=== PATIENT | female | born 1985 | race Caucasian/White ===

== ENCOUNTER 2021-09-13 10:02 | Outpatient (CLI) | payer OTHER, SELFPAY ==
--- NOTE | ~2021-09-13 | US_ITS ---
EXAMINATION: US OB <=14 wk fetus w TV DATE: 09/13/2021 11:05 INDICATION: Amenorrhea, unspecified. Uncertain dates. TECHNIQUE: Real-time transabdominal pelvic ultrasound was performed. COMPARISON: None. FINDINGS: The uterus measures 8.6 x 4.4 x 6.0 cm. There is an intrauterine gestational sac. A yolk sac is ident ified. The crown rump length measures 6 mm, which correlates with an estimated gestational age of 6 weeks and 2 day(s) (+/-) 4 day(s). heart motion is identified measuring 113 beats per min point lay ira (bpm) by M-mode Doppler. The right ovary measures 2.9 x 1.8 x 1.7 cm. The left ovary measures 3.8 x 2.0 x 1.6 cm. There is no free fluid in the pelvis. IMPRESSION: 1. Single live intrauterine gestation with estimated date of delivery of 05/07/2022. Reviewed, dictated and finalized at location E. D SERVICE REPRESENTATIVE IMPRESSION: 1. Single live intrauterine gestation with estimated date of delivery of 2021.
== END 2021-09-13 10:03 | disposition home or self-care (01) ==
PROVIDERS: Visit Provider Obstetrics & Gynecology
DX: N91.2 Amenorrhea, unspecified (principal)
CPT/HCPCS: 76801; 76817

== ENCOUNTER 2021-11-26 14:47 | Outpatient (CLI) | payer OTHER, SELFPAY ==
[2021-11-26 15:31] LABS: Alanine Aminotransferase 65 U/L (4-35); Albumin Level 3.9 g/dL (3.5-5.1); Alkaline Phosphatase 77 U/L (38-126); Anion Gap 7 mmol/L (8-16); Aspartate Amino Transferase 39 U/L (14-36); Bilirubin,Total 0.2 mg/dL (0.2-1.3); Blood Urea Nitrogen 6 mg/dL (7-17); Carbon Dioxide 23 mmol/L (22-30); Chloride 105 mmol/L (98-107); Estimated Glomerular Filt Rate > 60; Glucose 90 mg/dL (65-110); Lactate Dehydrogenase 316 U/L (313-618); Potassium 3.9 mmol/L (3.4-5.0); Sodium 135 mmol/L (137-145); Uric Acid 4.2 mg/dL (2.5-7.5)
--- NOTE | 2021-11-26 15:37 | ECG_ITS ---
Measurements Intervals [place] Rate: 95 P: 28 NC: 145 QRS: -22 QRSD: 92 T: 19 QT: 347 QTc: 437 Interpretive Statements SINUS RHYTHM BORDERLINE LEFT AXIS DEVIATION [QRS AXIS < -20] NO PREVIOUS ECG AVAILABLE FOR COMPARISON Electronically Signed On 11-27-2021 13:38:35 CDT by Noa Deng M.D.
== END 2021-11-26 14:48 | disposition home or self-care (01) ==
LOC: ANHLAB 14:49
PROVIDERS: Visit Provider Student in an Organized Health Care Education/Training Program
DX: O13.9 Gestational [pregnancy-induced] hypertension without significant proteinuria, unspecified trimester (principal); Z3A.00 Weeks of gestation of pregnancy not specified
CPT/HCPCS: 36415; 80053; 83615; 84443; 84550; 93005

== ENCOUNTER 2021-11-28 09:56 | Outpatient (CLI) | payer OTHER, SELFPAY ==
[2021-11-28 11:38] LABS: Creatinine Urine 87.7 mg/dL
[2021-11-28 11:54] LABS: Total Protein Urine Random 8 mg/dL
[2021-11-28 13:30] LABS: Total Protein Urine 24 Hr 96 mg/24hr (28-141); Total Volume 24 Hour Urine 1200 ml
== END 2021-11-28 09:57 | disposition home or self-care (01) ==
LOC: ANHLAB 10:00
PROVIDERS: Visit Provider Student in an Organized Health Care Education/Training Program
DX: O13.9 Gestational [pregnancy-induced] hypertension without significant proteinuria, unspecified trimester (principal); Z3A.00 Weeks of gestation of pregnancy not specified
CPT/HCPCS: 81050; 82570; 84156

== ENCOUNTER 2021-12-26 08:49 | Outpatient (CLI) | payer OTHER, SELFPAY ==
--- NOTE | 2021-12-26 09:07 | ECHO_ITS ---
Patient Info Name: Hyacinth Rodriguez Age: 36 years : 1985 Gender: Female Ht: 68 in Wt: 310 lbs BSA: 2.67 m2 HR: 94 bpm BP: 163 / 96 mmHg Technical Quality: Good Exam Date: 12/26/2021 9:26 AM Exam Location: [facility] Patient Status: Outpatient Admit Date: 12/26/2021 Staff Ordering Physician: Melany Beltran MD Health Social Work Professor: Josue Forde RDCS, RT Attending Provider: Melany Beltran MD Referring Physician: Devin CASILLAS; Exam Type: CA echo doppler color flow Study Info Indications I10 - Essential (primary) hypertension Complete two-dimensional, color flow and Doppler transthoracic echocardiogram is performed. Strain analysis performed. Summary 1. Complete two-dimensional, color flow and Doppler transthoracic echocardiogram is performed. 2. Left ventricular chamber dimension is normal. 3. Left ventricular systolic function is normal, estimated at 60-65%. 4. The left ventricular diastolic function is grade I diastolic dysfunction. 5. E/e' 4 is not elevated. 6. Global longitudinal strain is normal at -17.9%. 7. Left atrial chamber dimension is mildly enlarged. Left Ventricle E/e' 4 is not elevated. Global longitudinal strain is normal at -17.9%. Left ventricular chamber dimension is normal. Left ventricular systolic function is normal, estimated at 60-65%. The left ventricular diastolic function is grade I diastolic dysfunction. Right Ventricle Right ventricular systolic function is normal and with normal TAPSE 2.1 cm. Right ventricular chamber dimension is normal. Left Atria Left atrial chamber dimension is mildly enlarged. Right Atria Right atrial chamber dimension is normal. Aortic Valve The aortic valve is trileaflet. There is no aortic valve stenosis. There is no aortic valve regurgitation. Pulmonic Valve There is no pulmonic regurgitation. Mitral Valve There is no mitral valve stenosis. There is no mitral valve regurgitation. Tricuspid Valve There is no tricuspid valve regurgitation. Pericardium/Pleural There is no pericardial effusion. Inferior Vena Cava Normal inferior vena cava with >50% collapse upon inspiration consistent with normal right atrial pressure, 5 mmHg. Aorta The aortic root size at the sinus of Valsalva is normal. Left Ventricular Outflow Tract Name Value Normal LVOT 2D LVOT Diameter 2.2 cm LVOT Doppler LVOT Peak Gradient 4 mmHg LVOT Mean Gradient 2 mmHg LVOT VTI 17 cm LVOT VTI/AV VTI Ratio 0.7 LVOT Stroke Volume 66 ml LVOT CO 6.3 l/min LVOT CI 2.3 l/min/m2 Mitral Valve Name Value Normal MV Doppler MV Decel [place] 229 cm/s2 MV P
== END 2021-12-26 08:50 | disposition home or self-care (01) ==
LOC: ANHCARD 08:54
PROVIDERS: Visit Provider Student in an Organized Health Care Education/Training Program
DX: O13.3 Gestational [pregnancy-induced] hypertension without significant proteinuria, third trimester (principal); Z3A.39 39 weeks gestation of pregnancy
CPT/HCPCS: 93306

== ENCOUNTER 2022-01-30 10:38 | Outpatient (CLI) | payer OTHER, SELFPAY ==
[2022-01-30 12:33] LABS: Basophils Absolute Auto 0.1 K/mm3 (0.0-0.1); Basophils Percent Auto 0.4 % (0.2-1.2); Eosinophils Absolute Auto 0.2 K/mm3 (0-0.3); Eosinophils Percent Auto 1.3 % (0-4.4); Hematocrit 34.4 % (37.0-47.0); Hemoglobin 11.3 g/dL (12.0-15.0); Immature Granulocyte Absolute 0.12 K/mm3 (0.00-0.031); Lymphocytes Absolute Auto 1.79 K/mm3 (0.9-3.2); Mean Corpuscular HGB Conc 32.8 g/dl (32-36); Mean Corpuscular Hemoglobin 28.5 pg (26-34); Mean Corpuscular Volume 86.9 fl (80-100); Mean Platelet Volume 9.2 fl (7.4-10.4); Monocytes Absolute Auto 0.6 K/mm3 (0.1-0.6); Monocytes Percent Auto 4.6 % (2.6-8.5); Neutrophils Absolute Auto 9.3 K/mm3 (1.3-6.7); Neutrophils Percent Auto 77.7 % (45.5-73.1); Platelet Count Result 284 k/mm3 (150-375); Red Blood Count 3.96 M/mm3 (4.2-5.4); Red Cell Distribution Width 12.6 % (11.5-14.5); White Blood Count 11.9 K/mm3 (4.5-10.0)
[2022-01-30 12:42] LABS: Glucose 1 Hour PP 50gm Dose 105 mg/dL
== END 2022-01-30 10:39 | disposition home or self-care (01) ==
LOC: ANHLAB 10:39
PROVIDERS: Visit Provider Obstetrics & Gynecology
DX: O09.92 Supervision of high risk pregnancy, unspecified, second trimester (principal)
CPT/HCPCS: 36415; 82947; 85025

== ENCOUNTER 2022-02-28 13:21 | Outpatient (CLI) | payer OTHER, SELFPAY ==
[2022-02-28 13:58] LABS: Basophils Absolute Auto 0.1 K/mm3 (0.0-0.1); Basophils Percent Auto 0.4 % (0.2-1.2); Eosinophils Absolute Auto 0.1 K/mm3 (0-0.3); Eosinophils Percent Auto 1.1 % (0-4.4); Hematocrit 35.6 % (37.0-47.0); Hemoglobin 11.6 g/dL (12.0-15.0); Immature Granulocyte Absolute 0.12 K/mm3 (0.00-0.031); Lymphocytes Absolute Auto 1.91 K/mm3 (0.9-3.2); Lymphocytes Percent Auto 15.2 % (18.3-44.2); Mean Corpuscular HGB Conc 32.6 g/dl (32-36); Mean Corpuscular Hemoglobin 28.1 pg (26-34); Mean Corpuscular Volume 86.2 fl (80-100); Mean Platelet Volume 9.7 fl (7.4-10.4); Monocytes Absolute Auto 0.6 K/mm3 (0.1-0.6); Monocytes Percent Auto 4.4 % (2.6-8.5); Neutrophils Absolute Auto 9.8 K/mm3 (1.3-6.7); Neutrophils Percent Auto 77.9 % (45.5-73.1); Platelet Count Result 332 k/mm3 (150-375); Red Blood Count 4.13 M/mm3 (4.2-5.4); White Blood Count 12.5 K/mm3 (4.5-10.0)
[2022-02-28 14:08] LABS: Alanine Aminotransferase 68 U/L (6-35); Albumin Level 3.9 g/dL (3.5-5.1); Alkaline Phosphatase 114 U/L (38-126); Aspartate Amino Transferase 30 U/L (14-36); Bilirubin,Total 0.3 mg/dL (0.2-1.3)
[2022-02-28 14:49] LABS: HIV 1/2 Ab P24 Ag Result Negative (Negative)
[2022-02-28 16:32] LABS: Rapid Plasma Reagin Non-Reactive (NonReactive)
== END 2022-02-28 13:22 | disposition home or self-care (01) ==
LOC: ANHLAB 13:24
PROVIDERS: Visit Provider Obstetrics & Gynecology
DX: O09.93 Supervision of high risk pregnancy, unspecified, third trimester (principal); Z3A.00 Weeks of gestation of pregnancy not specified
CPT/HCPCS: 36415; 80076; 85025; 86592; 86703; G0432

== ENCOUNTER 2022-04-10 12:07 | Outpatient (CLI) | payer OTHER, SELFPAY ==
[2022-04-10] VITALS (7 sets, daily range): BP systolic 105–121; BP diastolic 55–75; PULSE 90–96; TEMP 36.8
[2022-04-10 12:53] LABS: Basophils Percent Auto 0.3 % (0.2-1.2); Eosinophils Absolute Auto 0.2 K/mm3 (0-0.3); Eosinophils Percent Auto 1.3 % (0-4.4); Hematocrit 35.8 % (37.0-47.0); Hemoglobin 11.8 g/dL (12.0-15.0); Immature Granulocyte Absolute 0.11 K/mm3 (0.00-0.031); Immature Granulocyte Percent A 0.9 % (0-0.5); Lymphocytes Absolute Auto 1.84 K/mm3 (0.9-3.2); Lymphocytes Percent Auto 14.9 % (18.3-44.2); Mean Corpuscular Hemoglobin 28.2 pg (26-34); Mean Corpuscular Volume 85.4 fl (80-100); Mean Platelet Volume 9.9 fl (7.4-10.4); Monocytes Absolute Auto 0.6 K/mm3 (0.1-0.6); Monocytes Percent Auto 4.6 % (2.6-8.5); Neutrophils Absolute Auto 9.6 K/mm3 (1.3-6.7); Platelet Count Result 336 k/mm3 (150-375); Red Blood Count 4.19 M/mm3 (4.2-5.4); Red Cell Distribution Width 13.2 % (11.5-14.5); White Blood Count 12.4 K/mm3 (4.5-10.0)
[2022-04-10 13:00] LABS: Alanine Aminotransferase 73 U/L (6-35); Albumin Level 3.7 g/dL (3.5-5.1); Alkaline Phosphatase 128 U/L (38-126); Anion Gap 11 mmol/L (8-16); Aspartate Amino Transferase 33 U/L (14-36); Bilirubin,Total 0.3 mg/dL (0.2-1.3); Blood Urea Nitrogen 7 mg/dL (7-17); Calcium 8.9 mg/dL (8.4-10.2); Carbon Dioxide 22 mmol/L (22-30); Chloride 105 mmol/L (98-107); Creatinine Urine 46.2 mg/dL; Estimated Glomerular Filt Rate > 60; Glucose 109 mg/dL (65-110); Potassium 3.9 mmol/L (3.4-5.0); Sodium 138 mmol/L (137-145); Total Protein Urine Random 14 mg/dL; Uric Acid 4.6 mg/dL (2.5-7.5)
[2022-04-10 13:09] LABS: Appearance Urine Clear (Clear); Bilirubin Urine Negative (Negative); Blood Urine Negative (Negative); Color Urine Yellow (Yellow); Glucose Urine UA Negative (Negative); Ketones Urine Negative (Negative); Leukocyte Esterase Ur Trace LEU/UL (NEGATIVE); Nitrate Urine Negative (Negative); Protein Urine Negative (Negative); Specific Grav Ur 1.015 (1.001-1.035); Urobilinogen Urine 0.2 mg/dL (<2.0)
[2022-04-10 13:22] LABS: Add Urine Microscopic? YES
[2022-04-10 14:03] LABS: Bacteria Urine Trace /hpf; Mucus Urine Rare /lpf; Squamous Epithelial Cell Urine Few /hpf (Few); WBC Urine 21-30 /hpf (0-3)
--- NOTE | 2022-04-10 19:00 | PC.NURSE ---
Lab work called to Dr. Beltran. Will discharge pt home. Pt to start 24 hour urine and will have NST this weekend. PIH instructions reviewied with pt.
== END 2022-04-10 14:00 | disposition home or self-care (01) ==
LOC: ANHOBOP 12:12 → ANHOBPP 12:14
PROVIDERS: Visit Provider Student in an Organized Health Care Education/Training Program
DX: O13.9 Gestational [pregnancy-induced] hypertension without significant proteinuria, unspecified trimester (principal); Z3A.00 Weeks of gestation of pregnancy not specified
CPT/HCPCS: 36415; 59025; 80053; 81001; 82570; 84156; 84550; 85025; 87086; 87088; 99199

== ENCOUNTER 2022-04-12 11:51 | Outpatient (RCR) | payer OTHER, SELFPAY ==
[2022-04-12 12:05] VITALS: BP 118/72; PULSE 93
== END 2022-04-30 10:15 | disposition home or self-care (01) ==
LOC: ANHOBOP 11:51
PROVIDERS: Visit Provider Student in an Organized Health Care Education/Training Program
DX: O14.93 Unspecified pre-eclampsia, third trimester (principal); Z3A.37 37 weeks gestation of pregnancy
CPT/HCPCS: 59025

== ENCOUNTER 2022-04-12 11:51 | Outpatient (CLI) | payer OTHER, SELFPAY ==
[2022-04-12 12:14] VITALS: BMI 50.1
[2022-04-12 12:56] LABS: Collection Time Urine 24 HOURS
[2022-04-12 12:57] LABS: Total Volume 24 Hour Urine 2450 ml
[2022-04-12 13:07] LABS: Creatinine Clearance Urine 178.5 ml/min (75-125); Creatinine Urine 89.4 mg/dL; Patient Weight 319 Lbs; Total Protein Urine 24 Hr 490 mg/24hr (28-141); Total Protein Urine Random 20 mg/dL
== END 2022-04-12 11:52 | disposition home or self-care (01) ==
LOC: ANHOBOP 11:58
PROVIDERS: Visit Provider Student in an Organized Health Care Education/Training Program
DX: O13.9 Gestational [pregnancy-induced] hypertension without significant proteinuria, unspecified trimester (principal); Z3A.00 Weeks of gestation of pregnancy not specified
CPT/HCPCS: 59025; 81050; 82575; 84156

== ENCOUNTER 2022-04-16 15:47 | Inpatient (IN) | payer OTHER, SELFPAY ==
[2022-04-16] VITALS (26 sets, daily range): BP systolic 118–160; BP diastolic 61–82; PULSE 89–111; RESP 18; TEMP 36.2–36.7; O2SAT 95–98; BMI 51.4
[2022-04-16] MEDS: DINOPROSTONE 10 MG VAG INSERT VAGINAL (17:02)
[2022-04-16 17:03] LABS: Basophils Percent Auto 0.3 % (0.2-1.2); Eosinophils Absolute Auto 0.1 K/mm3 (0-0.3); Eosinophils Percent Auto 1.1 % (0-4.4); Hematocrit 34.3 % (37.0-47.0); Hemoglobin 11.6 g/dL (12.0-15.0); Immature Granulocyte Absolute 0.06 K/mm3 (0.00-0.031); Immature Granulocyte Percent A 0.5 % (0-0.5); Mean Corpuscular HGB Conc 33.8 g/dl (32-36); Mean Corpuscular Hemoglobin 28.5 pg (26-34); Mean Corpuscular Volume 84.3 fl (80-100); Mean Platelet Volume 9.8 fl (7.4-10.4); Monocytes Absolute Auto 0.6 K/mm3 (0.1-0.6); Monocytes Percent Auto 5.2 % (2.6-8.5); Neutrophils Absolute Auto 8.8 K/mm3 (1.3-6.7); Neutrophils Percent Auto 77.9 % (45.5-73.1); Platelet Count Result 301 k/mm3 (150-375); Red Blood Count 4.07 M/mm3 (4.2-5.4); Red Cell Distribution Width 13.3 % (11.5-14.5); White Blood Count 11.3 K/mm3 (4.5-10.0)
--- NOTE | 2022-04-16 17:30 | LDADM ---
This patient, Hyacinth Rodriguez, was admitted to Labor/Delivery/Recovery 106 on 04/16/22 at 15:47. Plans for labor, pain management and were discussed with patient. Patient/family oriented to hospital policies and general routines including ID bracelet, bed and alarms, visiting hours, pain management, procedures, bathroom and other care routines, personal items, smoking policy, room service/diet and guest tray routines, infant security routines, and visiting hours. Patient/Family are encouraged to report perceived risks to care and to ask questions if they do not understand what they are told or what they should do. See OBIX for further documentation.
--- NOTE | 2022-04-16 17:53 | WPDANESEPP ---
Anes - Eval Pre Procedure Procedure: Labor epidural Date/Time: 04/16/22 17:53 Surgeon: Devin Preop Diagnosis: Abd pain with contractions Pre Op Diagnosis: iol Patient Data Age: 37 Gender: F Height: 1.7 m Weight: 149 kg Last Vital Signs Pulse 94 04/16/22 17:46 BP 130/74 04/16/22 17:46 Allergies Allergy/AdvReac Type Severity Reaction Status Date / Time No Known Allergies Allergy Verified 04/16/22 09:42 Home Medications Medication Instructions Recorded Confirmed Type docosahexaenoic acid 200 mg 200 mg PO DAILY 09/17/21 04/16/22 History capsule ( DHA) omega 0-utc-jcv-fish oil 60 mg-90 1 cap PO DAILY 09/17/21 04/16/22 History mg-500 mg capsule (Fish Oil) aspirin 81 mg chewable tablet 162 mg PO DAILY 10/15/21 04/16/22 History labetalol 200 mg tablet 200 mg PO Q12H 12/19/21 04/16/22 History Laboratory Tests 04/16/22 04/16/22 04/16/22 16:41 16:41 16:41 WBC 11.3 K/mm3 H K/mm3 (4.5-10.0) RBC 4.07 M/mm3 L M/mm3 (4.2-5.4) Hgb 11.6 g/dL L g/dL (12.0-15.0) Hct 34.3 % L % (37.0-47.0) MCV 84.3 fl fl (80-100) MCH 28.5 pg pg (26-34) MCHC 33.8 g/dl g/dl (32-36) RDW 13.3 % % (11.5-14.5) Plt Count 301 k/mm3 k/mm3 (150-375) MPV 9.8 fl fl (7.4-10.4) Immature Gran % (Auto) 0.5 % % (0-0.5) Neut % (Auto) 77.9 % H % (45.5-73.1) Lymph % (Auto) 15.0 % L % (18.3-44.2) [place] % (Auto) 5.2 % % (2.6-8.5) Eos % (Auto) 1.1 % % (0-4.4) Baso % (Auto) 0.3 % % (0.2-1.2) Lymph # (Auto) 1.70 K/mm3 K/mm3 (0.9-3.2) [place] # (Auto) 0.6 K/mm3 K/mm3 (0.1-0.6) Eos # (Auto) 0.1 K/mm3 K/mm3 (0-0.3) Baso # (Auto) 0.0 K/mm3 K/mm3 (0.0-0.1) Abs Immat Gran (auto) 0.06 K/mm3 H K/mm3 (0.00-0.031) Absolute Neuts (auto) 8.8 K/mm3 H K/mm3 (1.3-6.7) Absolute Nucleated RBC 0.0 K/mm3 K/mm3 (0.0-0.012) Nucleated RBC % 0.0 % % (0.0-0.2) RPR Pending HIV 1&2 Ab/P24 Ag 4thGn Pending Blood Type Antibody Screen 04/16/22 16:41 WBC RBC Hgb Hct MCV MCH MCHC RDW Plt Count MPV Immature Gran % (Auto) Neut % (Auto) Lymph % (Auto) [place] % (Auto) Eos % (Auto) Baso % (Auto) Lymph # (Auto) [place] # (Auto) Eos # (Auto) Baso # (Auto) Abs Immat Gran (auto) Absolute Neuts (auto) Absolute Nucleated RBC Nucleated RBC % RPR HIV 1&2 Ab/P24 Ag 4thGn Blood Type A Positive Antibody Screen Negative Patient hx anesthesia problems: none Family hx anesthesia problems: none Results Review: All pre-operative results and documents have been reviewed as part of the pre-operative evaluation. 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
[2022-04-16 17:54] LABS: HIV 1/2 Ab P24 Ag Result Negative (Negative)
[2022-04-16 19:05] LABS: Alanine Aminotransferase 66 U/L (6-35); Albumin Level 3.4 g/dL (3.5-5.1); Alkaline Phosphatase 136 U/L (38-126); Anion Gap 9 mmol/L (8-16); Aspartate Amino Transferase 38 U/L (14-36); Bilirubin,Total 0.4 mg/dL (0.2-1.3); Blood Urea Nitrogen 7 mg/dL (7-17); Calcium 9.1 mg/dL (8.4-10.2); Carbon Dioxide 22 mmol/L (22-30); Chloride 105 mmol/L (98-107); Estimated CRCL calculation 200 ml/min; Estimated Glomerular Filt Rate > 60; Glucose 91 mg/dL (65-110); Potassium 3.4 mmol/L (3.4-5.0); Sodium 136 mmol/L (137-145); Uric Acid 4.8 mg/dL (2.5-7.5)
[2022-04-16] MEDS: LABETALOL HCL 100 MG TABLET 200 MG PO (20:40)
[2022-04-17] VITALS (189 sets, daily range): BP systolic 78–155; BP diastolic 46–92; PULSE 62–101; TEMP 36.2–36.6; O2SAT 87–100
[2022-04-17] MEDS: OXYTOCIN 30 UNITS/NS 500 ML 30 UNITS/500 ML BAG 6 UNITS IV CONT (06:03)
[2022-04-17] MEDS: LACTATED RINGERS 1,000 ML 125 ML IV CONT ×2 (06:03→11:58)
--- NOTE | 2022-04-17 08:45 | PM.OBPNLAB ---
Pain Control Date/time seen: 04/17/22 08:45 SVE 1/thick/-3. EFM category 1. Contractions q2-4 mins. Mckeon balloon catheter placed and inflated with 60cc saline. Continue pitocin. Continue EFM and toco.
[2022-04-17] MEDS: LABETALOL HCL 100 MG TABLET 200 MG PO ×2 (09:01→21:00)
[2022-04-17] MEDS: fentaNYL CITRATE INJ (*CRX) 100 MCG/2 ML VIAL 50 MCG IV PUSH (09:02)
[2022-04-17] MEDS: ONDANSETRON INJ 4 MG/2 ML VIAL IV PUSH (10:04)
--- NOTE | 2022-04-17 12:00 | P.PNOB_ITS ---
Pain Control Date/time seen: 04/17/22 11:55 Mckeon balloon dislodged. SVE /-2. AROM performed, clear fluid noted. EFM category 1. [place] shows contractions q2 mins. Continue EFM and toco. Continue pitocin. Pain management PRN.
--- NOTE | 2022-04-17 12:28 | PM.IMHP ---
H&P: HPI History of Present Illness Date/Time: 04/17/22 12:28 Chief Complaint: Chronic hypertension with superimposed preeclampsia Advanced maternal age Narrative: Patient is a 37-year-old LMP 07/25/2021 currently 37 weeks 1 day gestation with MARLY 05/07/2022. Patient is dated by ultrasound on 09/13/2021 at 6 weeks gestation. Patient presents to labor and delivery for scheduled induction of labor secondary to chronic hypertension with superimposed preeclampsia. Patient has a history of chronic hypertension. She is currently on Labetalol 200mg BID. Over past few days, BP has increased and she has more elevated measurements that previously noted. Recent repeat 24 hour urine collection showed 490 mg protein, which was a significant increase from 96mg collected during her baseline labs early in . Decision made to proceed with induction of labor at 37 weeks gestation. In general, patient doing well. Denies any vaginal bleeding, leakage of fluid, or contractions. Reports good movement. Patient denies any headache, chest pain, shortness of breath, nausea, vomiting, RUQ tenderness, or visual disturbances. Review of Systems Constitutional: Constitutional: Reports as per HPI and Reports no additional constitutional complaints Eyes: Eyes: Reports as per HPI and Reports no additional eye complaints ENT: Reports system reviewed and no additional complaints, except as documented and Reports as per HPI Cardiovascular: Cardiovascular: Reports as per HPI and Reports no additional cardiovascular complaints Respiratory: Respiratory: Reports as per HPI and Reports no additional respiratory complaints Gastrointestinal: Gastrointestinal: Reports as per HPI and Reports no additional gastrointestinal complaints Genitourinary: Genitourinary: Reports no additional female genitourinary complaints and Reports as per HPI Musculoskeletal: Musculoskeletal: Reports no additional musculoskeletal complaints and Reports as per HPI Integumentary/Breasts: Skin/Breast: Reports system reviewed and no additional complaints, except as docu and Reports as per HPI Neurologic: Reports system reviewed and no additional complaints, except as documented and Reports as per HPI Psychiatric: Psychiatric: Reports no additional psychiatric complaints and Reports as per HPI Endocrine: Endocrine: Reports no additional endocrine complaints and Reports as per HPI Hematologic/Lymphatic: Hematologic/Lymphatic: Reports no additional hematologic/lymphatic complaints and Reports as per HPI Allergic/Immunologic: Allergic/Immunologic: Reports no additional allergic/immunologic complaints and Reports as per HPI [facility] Past Medical History Medical History Chronic hypertension in 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 disease Morbid (severe) obesity due to excess calories and not yet delivered Surgical History Surgical History Status post wrist surgery 03/2012, Proximal Row Carpectomy Family History Family History Father Hypertension Grandparent Carcinoma of colon Grandparent Breast cancer Social History Social History Smoking status: Never smoker Alcohol intake: current Alcohol use details: social Substance use: never Spiritual care concerns: No Meds Home Medications and Allergies Home Medications Medication Instructions Recorded Confirmed Type docosahexaenoic acid 200 mg 200 mg PO DAILY 09/17/21 04/16/22 History capsule ( DHA) omega 8-ykq-olg-fish oil 60 mg-90 1 cap PO DAILY 09/17/21 04/16/22 History mg-500 mg capsule (Fish Oil) aspirin 81 mg chewable tablet 162 mg PO DAILY 10/15/21 04/16/22 History labetalol 200 mg tablet 200 mg PO Q12H 12/19/21 04/16/22 History Allergies Allergy/AdvReac Type Severity React
--- NOTE | 2022-04-17 12:56 | WPDHPUPDATE1 ---
History and Physical Update Update Date/Time: 04/17/22 12:56 History and Physical has been reviewed, including an updated exam of the patient. There are NO changes in the patient's condition. Risks, benefits, and alternatives have been discussed and questions answered. Patient agrees to proceed with procedure.
[2022-04-17] MEDS: LACTATED RINGERS 1,000 ML 999 ML IV CONT (14:40)
[2022-04-17 15:56] LABS: Rapid Plasma Reagin Non-Reactive (NonReactive)
[2022-04-17] MEDS: LORATADINE 10 MG TABLET PO (21:07)
[2022-04-18] VITALS (109 sets, daily range): BP systolic 103–146; BP diastolic 50–96; PULSE 58–104; RESP 16–18; TEMP 36–37; O2SAT 89–100
[2022-04-18] MEDS: LACTATED RINGERS 1,000 ML 999 ML IV CONT (04:45)
[2022-04-18] MEDS: OXYTOCIN 30 UNITS/NS 500 ML 30 UNITS/500 ML BAG 6 UNITS IV CONT (05:00)
--- NOTE | 2022-04-18 05:37 | PM.OBPRVD ---
OB - Delivery Note Procedure Delivery date: 04/18/22 Procedure: Patient is a 37-year-old now who presented to labor and delivery on the evening of 04/16/2022 at 37 weeks gestation for scheduled induction labor secondary to chronic hypertension with superimposed preeclampsia. Patient was admitted to labor and delivery. Initial cervical exam was closed and thick. Induction of labor was started with Cervidil. Cervidil was placed and remained in place for approximately 12 hours. After removal of Cervidil, cervical exam was approximately 1 cm dilated. A Hwang balloon catheter was placed transcervically and Pitocin was started for labor augmentation. Hwang balloon became dislodged a few hours later and patient was approximately 3 cm dilated. Artificial rupture of membranes was performed at 11:54 a.m. on 04/17/2022. Clear amniotic fluid was noted. Pitocin was continued. An IUPC was placed for enhanced monitoring. As Pitocin was titrated, patient became increasingly uncomfortable and requested an epidural for pain management which was placed without difficulty. Pitocin was continued for an additional several hours. Patient made cervical change to approximately 4-5 cm dilated. Pitocin was discontinued and patient was allowed to rest for a short period of time. Pitocin was then restarted. Patient made slow cervical change throughout the remainder of the evening and carcass splitter. An FSE was placed for enhanced monitoring. Patient progressed to fully dilated at 4:40 a.m. Patient was encouraged to push and found to be pushing well. She was prepped and draped for delivery. At 5:12 a.m., patient delivered infant head atraumatically in STEFANIE presentation. Occiput restituted to maternal right side. A nuchal cord x1 was noted, however, unable to be reduced. With subsequent push, the 's neck, shoulders, and rest of body delivered without difficulty. Infant was crying. Nuchal cord was reduced. The 's nose and mouth were suctioned with bulb suction and infant was placed on maternal abdomen where care was assumed by awaiting nursing staff. Delayed cord clamping was performed for approximately 60 seconds. The cord was clamped and cut. A segment of cord was collected for cord gases. Cord blood was collected. The placenta was delivered spontaneously and intact. Uterine fundus was noted to be firm with bimanual massage. On inspection, a superficial left vaginal wall laceration was noted. This laceration was repaired with 3-0 Vicryl in the usual fashion. Excellent hemostasis was noted. Estimated blood loss for entire delivery was 250 cc. The infant was a live-born male infant, Apgars 7 and 9, weighing 6 lbs. 13 oz. Both mother and baby doing well at end of delivery. Events: Chronic Hypertension and Preeclampsia w/o severe features Induction method: Per Cervidil Protocol and Other (hwang balloon catheter) Delivery augmentation: Rupture of Membranes and Pitocin Delivery monitor: External FHT, External Uterine, Internal FHT and Internal Uterine Route of delivery: Laceration Description: Vaginal (superficial left vaginal wall) Delivery repair: vicryl (3-0) Specimen: Yes (3-0 vicryl) Quantitative Blood Loss (ml): 250 Anesthesia type: Epidural Disposition: Floor Complications: No immediate complications Baby Date of : 04/18/22 Time of : 05:12 Weeks of gestation at delivery: 37 (37.2) gender: Male Weight (pounds): 6 Weight (ounces): 13 presentation: vertex position: Right Occiput Anterior Placenta delivery description: Spontaneous Cord Vessel Description: 3 Vessels, Nuchal Cord (x1) and Delayed Cord Clamping (x60s) score one minute: 7 score five minutes: 9 AMG Delivery Billing Delivery Delivery: Delivery Charge
[2022-04-18] MEDS: OXYTOCIN 30 UNITS/NS 500 ML 30 UNITS/500 ML BAG 125 UNITS IV CONT (05:45)
[2022-04-18] MEDS: ACETAMINOPHEN 325 MG TABLET 650 MG PO (06:50)
[2022-04-18] MEDS: BENZOCAINE 20% AER SPR (*SP) 56 GM CAN 1 SPRAY TOPICAL (06:52)
[2022-04-18] MEDS: WITCH HAZEL 40 PADS 1 PAD TOPICAL (06:52)
--- NOTE | 2022-04-18 09:11 | OBPPTRN ---
Patient transferred to post room #288 via wheelchair. Support person present. Oriented to unit, room, information board, rooming in, admission packet and security measures. Patient verbalizes understanding.
[2022-04-18] MEDS: LABETALOL HCL 100 MG TABLET 200 MG PO ×2 (09:29→21:00)
[2022-04-18] MEDS: MULTIVIT/MIN/PREN/FOL AC/IRON TABLET 1 TAB PO (09:29)
--- NOTE | 2022-04-18 11:42 | PC.NURSE ---
Breast pump provided due to baby transferred to [facility]. Instructions given on cleaning, care, usage, that there should be no pain, pumping schedule for milk production, collection, and storage of human milk. Mother encouraged to pump every 3 hours. Patient was assessed for correct placement, flange size, to pump for comfort and nipple stretching/stimulation for adequate milk production every 3 hours (8 times in 24 hours). Mother voiced understanding of the education shared along with mom and baby guide for additional resource information.
[2022-04-19 05:05] VITALS: BP 122/63; PULSE 87; RESP 16; TEMP 36.9
[2022-04-19 05:16] LABS: Hemoglobin 10.8 g/dL (12.0-15.0)
[2022-04-19 08:30] VITALS: BP 143/88; PULSE 82; RESP 14; RESP 16; TEMP 36.7; O2SAT 96; O2SAT 98
[2022-04-19 08:33] VITALS: PULSE 82
[2022-04-19] MEDS: LABETALOL HCL 100 MG TABLET 200 MG PO (08:33)
[2022-04-19] MEDS: MULTIVIT/MIN/PREN/FOL AC/IRON TABLET 1 TAB PO (08:34)
--- NOTE | 2022-04-19 09:05 | WPDANESPN ---
Anes - Prog Note Post-Op Date/Time: 04/19/22 09:05 Cardiovascular status: normal Respiratory status: normal Airway patency: baseline Mental status: baseline Post-Op hydration status: normal Vital Signs: Last Vital Signs Temp 36.9 C 04/19/22 05:05 Pulse 82 04/19/22 08:33 Resp 16 04/19/22 05:05 BP 122/63 04/19/22 05:05 Pulse Ox 98 04/18/22 16:09 O2 Del Method Room Air 04/18/22 16:09 Pain Score (VAS): 0/10 I/O: Intake & Output 04/18/22 04/19/22 04/19/22 23:59 07:59 15:59 Intake Total 1300 Output Total 2300 800 Balance -1000 -800 Laboratory Tests 04/19/22 05:10 04/16/22 16:41 04/19/22 05:10 Hgb 10.8 L Hct 33.0 L Post-procedural complaints: none Patient Feedback: Patient satisfied with anesthetic care.
--- NOTE | 2022-04-19 09:35 | P.PNOB_ITS ---
OB - PN: Subj Subjective Date/time seen: 04/19/22 09:35 Patient doing well. Denies any abdominal/pelvic pain. Minimal lochia. Ambulating without difficulty. Voiding well. Denies any headache, chest pain, SOB, N/V, visual disturbances, or RUQ tenderness. OB - PN: Obj Data Labs CBC & Chem 7: 04/19/22 05:10 04/16/22 16:41 Labs: Laboratory Results - last 24 hr 04/19/22 05:10 Hgb 10.8 L Hct 33.0 L OB - PN A/P Assessment and Plan (1) Normal spontaneous vaginal delivery: Code(s): O80 - Encounter for full-term uncomplicated delivery Status: Acute Assessment and Plan: PPD#1 doing well continue routine care infant transferred, dc home today in stable condition emergency precautions reviewed f/u in office in 1 week for BP check (2) Chronic hypertension with superimposed preeclampsia: Code(s): O11.9 - Pre-existing hypertension with pre-eclampsia, unspecified trimester Status: Acute Assessment and Plan: BP mostly WNL, few mild elevations, none severe pt asymptomatic continue Labetalol at home advised to continue BP monitoring BID emergency precautions reviewed Time Spent With Patient Time: Total time spent is greater than 50% in coordination of care (as documented) at patient's floor/unit and/or counseling patient: Exam Const: General: cooperative, healthy appearing, comfortable and no acute distress GI: Inspection: non-distended GI Palp: Yes Soft to palpation and No Ten derness to palpation present (GI) Other: fundus firm below umbilicus Extrem: Right lower extremity: no edema Left lower extremity: no edema Other: no calf tenderness
--- NOTE | 2022-04-19 09:38 | PM.OBDSVD ---
DS: Admitting Diagnosis Discharge Date 04/19/22 Admitting Diagnosis [facility] pre[facility] DS: Discharge Diagnosis Discharge Diagnosis (1) Normal spontaneous vaginal delivery: Code(s): O80 - Encounter for full-term uncomplicated delivery Status: Acute (2) Chronic hypertension with superimposed preeclampsia: Code(s): O11.9 - Pre-existing hypertension with pre-eclampsia, unspecified trimester Status: Acute OB - DS: Summary OB Procedures : PIH Mgmt OB Procedures Intrapartum: Spontaneous Vag Delivery OB Procedures: : None Time Spent with Patient Time attestation: Total time spent providing and/or coordinating discharge services: DS: Data Data Completed and Pending Pending studies at discharge: Pending at discharge 04/18/22 05:17 Surgical [PTH] Routine Labs on day of discharge: Labs from last 24 hours 04/19/22 05:10 Hgb 10.8 L Hct 33.0 L Discharge Plan Discharge Attending physician on discharge: Melany Beltran Discharging Clinician: Melany Beltran Anticipated Discharge Date/Time: 04/19/22 09:39 Patient Disposition: Home, Self-Care Activity: pelvic rest Diet: regular Discharge Instructions: Call office ([phone]) to schedule the following appointments: 1. Blood pressure check in 1 week. 2. visit in 4-6 weeks. Continue taking Labetalol 200mg every 12 hours at home. Also continue taking your blood pressure at home. Return to ED or L&D for SBP (top number) >160 or DBP (bottom number) >110. You may take Ibuprofen 600mg every 6 hours as needed for pain. Pain medication may make you constipated. It may be helpful to take an alzb-pqn-iadioaw stool softener, such as Colace and/or Senokot, along with the pain medication to help lessen constipation. Call office or go to ED for pain not controlled with medication, headache, chest pain, shortness of breath, fever, chills, persistent nausea or vomiting, severe abdominal pain, heavy vaginal bleeding >2 pads/hour, foul vaginal discharge or odor, or problems with your breasts. Education: Mom and Baby Guide Given to: Mother Follow-Up: Call your delivering provider's office for an appointment to be seen in: 4-6 Weeks Mom and baby should come to the [facility] for the follow-up appointment. Appointment Date/Time: April 21, 2022 at 9:00 am What to expect at your follow-up visit: Blood Pressure Check Physical Assessment Call [phone] if you are unable to keep your appointment time. BREAST CARE: * Wear a snug supportive bra. * For engorgement discomfort: Breast Feeding: * Apply warm moist washcloths * Express milk as needed to relieve engorgement * Wear loose clothing Bottle Feeding: * May apply ice packs * For sore nipples: * Identify correct latch-on * Apply warm moist washcloths before and after nursing * Air dry nipples after nursing * May apply Lansinoh cream to nipples *See handouts for breast engorgement and pumping and collection of breastmilk EPISIOTOMY/PERINEAL CARE: * Until bleeding stops, use your jessica bottle after urinating * Change your pad frequently throughout the day * You may take sitz baths several times a day (fill your bathtub with warm water and soak for 20 minutes.) Do NOT bathe in the water * No tub baths until seen by your physician - You may shower ACTIVITY: * Rest as much as possible. * Do not exercise or lift anything heavier than your baby (such as laundry or other children.) * Avoid stairs or driving as much as possible. * Do not put anything into the vagina. No douching, tampons, or sexual activity until seen by physician. NOTIFY PHYSICIAN IF YOU HAVE ANY QUESTIONS OR IF ANY OF THE FOLLOWING SYMPTOMS OCCUR: * If your vaginal area becomes red, swollen, or more painful than what you alonso
== END 2022-04-19 11:10 | disposition home or self-care (01) | DRG 560 ==
LOC: ANHLDR 15:51 → ANHOB2 04-18 09:25
PROVIDERS: Admitting Provider Student in an Organized Health Care Education/Training Program; Visit Provider Student in an Organized Health Care Education/Training Program
DX: O11.4 Pre-existing hypertension with pre-eclampsia, complicating childbirth (principal); E66.01 Morbid (severe) obesity due to excess calories; O99.214 Obesity complicating childbirth; O69.1XX0 Labor and delivery complicated by cord around neck, with compression, not applicable or unspecified; O70.0 First degree perineal laceration during delivery; O76 Abnormality in fetal heart rate and rhythm complicating labor and delivery; Z3A.37 37 weeks gestation of pregnancy; Z37.0 Single live birth
CPT/HCPCS: 36415; 80053; 84550; 85014; 85018; 85025; 86592; 86703; 86850; 86900; 86901; 88307; A9270; G0432; J2405; J2590; J2795; J3010; J7120

== ENCOUNTER → 2023-04-02 09:58 | Outpatient (CLI) | payer OTHER, SELFPAY ==
--- NOTE | ~2023-04-02 | US_ITS ---
Pelvic ultrasound. Clinical History: First trimester , establish dates and viability Technique: Realtime transabdominal and transvaginal scanning of the pelvis was performed. Color flow Doppler and Doppler spectral analysis were performed. Findings: The uterus is anteverted, and contains an intrauterine gestation. [place]-rump length of 3.3 cm corresponds to an estimated gestational age of 10 weeks 1 day. heart rate is 173 bpm. Tiny s ubchorionic hemorrhage present. Neither ovary seen. No adnexal mass seen. There is no evidence of free fluid in the cul de sac. Impression: Live intrauterine gestation with estimated gestational age of 10 weeks 1 day. heart rate is 173 bpm. Tiny subchorionic hemorrhage. Reviewed, dictated and finalized at location M. Impression: Live intrauterine gestation with estimated gestational age of 10 weeks 1 day. F etal heart rate is 173 bpm. Tiny subchorionic hemorrhage.
== END ==
PROVIDERS: PCP Registered Nurse; Visit Provider Registered Nurse
DX: Z34.91 Encounter for supervision of normal pregnancy, unspecified, first trimester (principal); Z3A.10 10 weeks gestation of pregnancy
CPT/HCPCS: 76801; 76817

== ENCOUNTER 2023-10-14 17:30 | Inpatient (IN) | payer OTHER, SELFPAY ==
[2023-10-14] VITALS (13 sets, daily range): BP systolic 126–143; BP diastolic 61–73; PULSE 78–91; TEMP 36.4–36.6; BMI 48.6
--- NOTE | 2023-10-14 17:30 | LDADM ---
This patient, Hyacinth Lowry, was admitted to Labor/Delivery/Recovery 104 on 10/14/23 at 17:30. Plans for labor, pain management and were discussed with patient. Patient/family oriented to hospital policies and general routines including ID bracelet, bed and alarms, visiting hours, pain management, procedures, bathroom and other care routines, personal items, smoking policy, room service/diet and guest tray routines, infant security routines, and visiting hours. Patient/Family are encouraged to report perceived risks to care and to ask questions if they do not understand what they are told or what they should do. See OBIX for further documentation.
[2023-10-14 18:25] LABS: Basophils Percent Auto 0.3 % (0.2-1.2); Eosinophils Absolute Auto 0.1 K/mm3 (0-0.3); Eosinophils Percent Auto 1.1 % (0-4.4); Hematocrit 35.4 % (37.0-47.0); Immature Granulocyte Absolute 0.05 K/mm3 (0.00-0.031); Immature Granulocyte Percent A 0.5 % (0-0.5); Lymphocytes Absolute Auto 2.26 K/mm3 (0.9-3.2); Lymphocytes Percent Auto 21.2 % (18.3-44.2); Mean Corpuscular HGB Conc 33.9 g/dl (32-36); Mean Corpuscular Hemoglobin 28.2 pg (26-34); Mean Corpuscular Volume 83.3 fl (80-100); Mean Platelet Volume 10.3 fl (7.4-10.4); Monocytes Absolute Auto 0.6 K/mm3 (0.1-0.6); Monocytes Percent Auto 5.6 % (2.6-8.5); Neutrophils Absolute Auto 7.6 K/mm3 (1.3-6.7); Neutrophils Percent Auto 71.3 % (45.5-73.1); Platelet Count Result 287 k/mm3 (150-375); Red Blood Count 4.25 M/mm3 (4.2-5.4); Red Cell Distribution Width 13.2 % (11.5-14.5); White Blood Count 10.7 K/mm3 (4.5-10.0)
--- NOTE | 2023-10-14 19:20 | WPDANESEPP ---
Anes - Eval Pre Procedure Procedure: labor epidural Date/Time: 10/14/23 19:20 Surgeon: katia Preop Diagnosis: pain during labor Pre Op Diagnosis: IOL Patient Data Age: 38 Gender: F Height: 1.7 m Weight: 141 kg Last Vital Signs Pulse 81 10/14/23 19:16 BP 126/62 10/14/23 19:16 Allergies Allergy/AdvReac Type Severity Reaction Status Date / Time No Known Allergies Allergy Verified 10/07/23 08:33 Home Medications Medication Instructions Recorded Confirmed Type docosahexaenoic acid 200 mg 200 mg PO DAILY 09/17/21 10/07/23 History capsule ( DHA) omega 1-yzv-jpw-fish oil 60 mg-90 1 cap PO DAILY 09/17/21 10/07/23 History mg-500 mg capsule (Fish Oil) psyllium husk 0.4 gram capsule 0.4 g PO DAILY 04/30/23 10/07/23 History (Fiber (psyllium husk)) aspirin 81 mg tablet,delayed 81 mg PO DAILY 07/01/23 10/07/23 History release (Adult Low Dose Aspirin) Laboratory Tests 10/14/23 17:49 WBC 10.7 H K/mm3 (4.5-10.0) RBC 4.25 M/mm3 (4.2-5.4) Hgb 12.0 g/dL (12.0-15.0) Hct 35.4 L % (37.0-47.0) MCV 83.3 fl (80-100) MCH 28.2 pg (26-34) MCHC 33.9 g/dl (32-36) RDW 13.2 % (11.5-14.5) Plt Count 287 k/mm3 (150-375) MPV 10.3 fl (7.4-10.4) Immature Gran % (Auto) 0.5 % (0-0.5) Neut % (Auto) 71.3 % (45.5-73.1) Lymph % (Auto) 21.2 % (18.3-44.2) Rains % (Auto) 5.6 % (2.6-8.5) Eos % (Auto) 1.1 % (0-4.4) Baso % (Auto) 0.3 % (0.2-1.2) Lymph # (Auto) 2.26 K/mm3 (0.9-3.2) Rains # (Auto) 0.6 K/mm3 (0.1-0.6) Eos # (Auto) 0.1 K/mm3 (0-0.3) Baso # (Auto) 0.0 K/mm3 (0.0-0.1) Abs Immat Gran (auto) 0.05 H K/mm3 (0.00-0.031) Absolute Neuts (auto) 7.6 H K/mm3 (1.3-6.7) Absolute Nucleated RBC 0.000 K/mm3 (0.0-0.012) Nucleated RBC % 0.0 % (0.0-0.2) Blood Type A Positive Antibody Screen Pending Patient hx anesthesia problems: none Family hx anesthesia problems: none Results Review: All pre-operative results and documents have been reviewed as part of the pre-operative evaluation. [facility] Past Medical History Medical History Chronic hypertension in Chronic hypertension with superimposed preeclampsia Kienb?ck's disease Morbid (severe) obesity due to excess calories Normal spontaneous vaginal delivery 04/18/22 Surgical History Surgical History Status post wrist surgery 03/2012, Proximal Row Carpectomy Family History Family History Father Hypertension Grandparent Carcinoma of colon Grandparent Breast cancer Social History Social History Smoking status: Never smoker Alcohol intake: never Alcohol use details: social Substance use: never Do You Feel Safe in your Home?: No Lack of Transportation: No Lack of Food: Never True Current Housing: I Have Housing Concerned About Future Housing: No Difficulty Paying Gas/Electric Bills: No Difficulty Paying for Meds: No Currently Unemployed: No Education: High School Diploma/GED Difficulty w/ Childcare or Family Care: No Living arrangements: with family Occupation/Education: occupation Gender identity (if verbalized by the patient): Female Sexual Orientation (if Verbalized by the Patient): Straight or Heterosexual Spiritual care concerns: No Exam Day of Procedure 10/14/23 19:20
[2023-10-14] MEDS: DINOPROSTONE 10 MG VAG INSERT VAGINAL (20:00)
[2023-10-15] VITALS (121 sets, daily range): BP systolic 116–156; BP diastolic 47–104; PULSE 63–119; RESP 18–20; TEMP 36.1–36.8; O2SAT 93–100
[2023-10-15 07:35] LABS: Rapid Plasma Reagin Non-Reactive (NonReactive)
[2023-10-15] MEDS: LACTATED RINGERS 1,000 ML 125 ML IV CONT (09:05)
[2023-10-15] MEDS: OXYTOCIN 30 UNITS/NS 500 ML 30 UNITS/500 ML BAG IV CONT (09:05)
[2023-10-15 09:32] LABS: Alanine Aminotransferase 67 U/L (6-35); Albumin Level 3.5 g/dL (3.5-5.1); Alkaline Phosphatase 144 U/L (38-126); Anion Gap 6 mmol/L (8-16); Aspartate Amino Transferase 32 U/L (14-36); Bilirubin,Total 0.5 mg/dL (0.2-1.3); Blood Urea Nitrogen 6 mg/dL (7-17); Carbon Dioxide 22 mmol/L (22-30); Chloride 107 mmol/L (98-107); Estimated CRCL calculation 233 ml/min; Estimated Glomerular Filt Rate > 60; Glucose 108 mg/dL (65-110); Potassium 3.6 mmol/L (3.4-5.0); Sodium 135 mmol/L (137-145)
--- NOTE | 2023-10-15 12:01 | P.PNOB_ITS ---
OB - PN: Subj Subjective Date/time seen: 10/15/23 12:01 Interval history: cat 1, cervix 4/60/-2, AROM clear. Continue Pitocin. OB - PN: Obj Data Labs 10/14/23 17:49 10/15/23 08:56 Labs: Laboratory Results - last 24 hr 10/14/23 10/14/23 10/15/23 17:48 17:49 08:56 WBC 10.7 H RBC 4.25 Hgb 12.0 Hct 35.4 L MCV 83.3 MCH 28.2 MCHC 33.9 RDW 13.2 Plt Count 287 MPV 10.3 Immature Gran % (Auto) 0.5 Neut % (Auto) 71.3 Lymph % (Auto) 21.2 [place] % (Auto) 5.6 Eos % (Auto) 1.1 Baso % (Auto) 0.3 Lymph # (Auto) 2.26 [place] # (Auto) 0.6 Eos # (Auto) 0.1 Baso # (Auto) 0.0 Abs Immat Gran (auto) 0.05 H Absolute Neuts (auto) 7.6 H Absolute Nucleated RBC 0.000 Nucleated RBC % 0.0 Sodium 135 L Potassium 3.6 Chloride 107 Carbon Dioxide 22 Anion Gap 6 L BUN 6 L Creatinine 0.40 L Estim Creat Clear Calc 233 Estimated GFR > 60 Glucose 108 Uric Acid 5.0 Calcium 9.0 Total Bilirubin 0.5 AST 32 ALT 67 H Alkaline Phosphatase 144 H Total Protein 7.0 Albumin 3.5 RPR Non-reactive Blood Type A Positive Antibody Screen Negative OB - PN A/P Time Spent With Patient Time: Total time spent is greater than 50% in coordination of care (as documented) at patient's floor/unit and/or counseling patient:
--- NOTE | 2023-10-15 12:01 | PM.IMHP ---
H&P: HPI History of Present Illness Date/Time: 10/15/23 12:01 Chief Complaint: Induction of labor Narrative: 38 y/o P1 with chronic hypertension, no meds, admitted for [facility]. She denies any headache scotomata or RUQ pain. She has had normal surveillance testing. Review of Systems Review of Systems: All systems reviewed & are unremarkable except as noted in HPI and below Constitutional: Constitutional: Reports no additional constitutional complaints and Denies headache(s) Eyes: Eyes: Denies spots in vision ENT: Reports system reviewed and no additional complaints, except as documented and Denies headache(s) Cardiovascular: Cardiovascular: Denies chest pain and Denies dyspnea Respiratory: Respiratory: Denies dyspnea Gastrointestinal: Gastrointestinal: Reports no additional gastrointestinal complaints Genitourinary: Genitourinary: Reports amenorrhea Musculoskeletal: Musculoskeletal: Reports no additional musculoskeletal complaints Integumentary/Breasts: Skin/Breast: Denies breast mass and Denies rash Neurologic: Denies headache(s) Psychiatric: Psychiatric: Reports no additional psychiatric complaints [facility] Past Medical History Medical History Chronic hypertension in Chronic hypertension with superimposed preeclampsia Kienb?ck's disease Morbid (severe) obesity due to excess calories Normal spontaneous vaginal delivery 04/18/22 Surgical History Surgical History Status post wrist surgery 03/2012, Proximal Row Carpectomy Family History Family History Father Hypertension Grandparent Carcinoma of colon Grandparent Breast cancer Social History Social History Smoking status: Never smoker Alcohol intake: never Alcohol use details: social Substance use: never Do You Feel Safe in your Home?: No Lack of Transportation: No Lack of Food: Never True Current Housing: I Have Housing Concerned About Future Housing: No Difficulty Paying Gas/Electric Bills: No Difficulty Paying for Meds: No Currently Unemployed: No Education: High School Diploma/GED Difficulty w/ Childcare or Family Care: No Living arrangements: with family Occupation/Education: occupation Gender identity (if verbalized by the patient): Female Sexual Orientation (if Verbalized by the Patient): Straight or Heterosexual Spiritual care concerns: No Meds Home Medications and Allergies Home Medications Medication Instructions Recorded Confirmed Type docosahexaenoic acid 200 mg 200 mg PO DAILY 09/17/21 10/07/23 History capsule ( DHA) omega 2-zix-nkg-fish oil 60 mg-90 1 cap PO DAILY 09/17/21 10/07/23 History mg-500 mg capsule (Fish Oil) psyllium husk 0.4 gram capsule 0.4 g PO DAILY 04/30/23 10/07/23 History (Fiber (psyllium husk)) aspirin 81 mg tablet,delayed 81 mg PO DAILY 07/01/23 10/07/23 History release (Adult Low Dose Aspirin) Allergies Allergy/AdvReac Type Severity Reaction Status Date / Time No Known Allergies Allergy Verified 10/07/23 08:33 Vital Signs Vital Signs - 24 hr 10/14/23 18:37 10/14/23 18:46 10/14/23 19:01 Temperature Pulse Rate 81 82 79 Blood Pressure 130/73 127/71 137/72 10/14/23 19:16 10/14/23 19:31 10/14/23 20:31 Temperature Pulse Rate 81 78 83 Blood Pressure 126/62 133/68 130/61 10/14/23 21:01 10/14/23 21:31 10/14/23 22:01 Temperature Pulse Rate 91 79 84 Blood Pressure 143/68 H 143/67 H 136/68 10/14/23 22:10 10/14/23 18:00 10/14/23 20:00 Temperature 97.6 F 97.8 F Pulse Rate 81 Blood Pressure 138/68 10/14/23 22:00 10/15/23 02:16 10/15/23 02:31 Temperature 97.6 F Pulse Rate 82 80 Blood Pressure 140/79 141/73 H 10/15/23 02:46 10/15/23 03:01 10/15/23 03:16
[2023-10-15] MEDS: OXYTOCIN 30 UNITS/NS 500 ML 30 UNITS/500 ML BAG 125 UNITS IV CONT (15:36)
--- NOTE | 2023-10-15 17:00 | P.PCNOB_ITS ---
OB - Vaginal Delivery Note Procedure Delivery date: 10/16/23 Events: Chronic Hypertension Induction method: Per Pitocin Protocol Delivery augmentation: Rupture of Membranes (clear) Delivery monitor: External FHT Route of delivery: Quantitative Blood Loss (ml): 150 Anesthesia type: Epidural Disposition: Floor Complications: No immediate complications Narrative: She was admitted for [facility]. She had AROM. She had an uncomplicated vaginal delivery. [place] Baby Date of : 10/15/23 Time of : 15:00 Weeks of gestation at delivery: 38 Infant gender: Male Weight (pounds): 8 Weight (ounces): 1 presentation: compound (right hand) position: Right Occiput Anterior Placenta delivery description: Spontaneous Cord Vessel Description: 3 Vessels, Clamped/Cut and Delayed Cord Clamping score one minute: 8 score five minutes: 9 AMG Delivery Billing Delivery Delivery: Delivery Charge
--- NOTE | 2023-10-15 17:51 | OBPPTRN ---
Patient transferred to post room #282 via wheelchair. Support person (Spouse) present. Oriented to unit, room, information board, rooming in, admission packet and security measures. Patient verbalizes understanding.
[2023-10-16 04:00] VITALS: BP 143/83; PULSE 90; RESP 18; TEMP 36.5; O2SAT 98
[2023-10-16 05:44] LABS: Hematocrit 34.8 % (37.0-47.0); Hemoglobin 11.7 g/dL (12.0-15.0)
[2023-10-16 07:30] VITALS: BP 140/74; PULSE 77; RESP 18; TEMP 37.1; O2SAT 99
--- NOTE | 2023-10-16 07:38 | WPDANLDPN2 ---
Anes-Prog Note L&D Date/Time: 10/16/23 07:38 Comfortable throughout: labor and delivery Neuraxial method: epidural Epidural/Spinal procedure site: clean & non-tender Neuro status: Neuro function grossly intact. Cardiovascular status: normal Respiratory status: normal Airway patency: baseline Mental status: baseline Post-Op hydration status: normal Vital Signs: Last Vital Signs Temp 36.5 C 10/16/23 04:00 Pulse 90 10/16/23 04:00 Resp 18 10/16/23 04:00 BP 143/83 H 10/16/23 04:00 Pulse Ox 98 10/16/23 04:00 O2 Del Method Room Air 10/15/23 20:00 Pain score (VAS): 08/12 I/O: Intake & Output 10/15/23 10/15/23 10/16/23 15:59 23:59 07:59 Intake Total 1500 Output Total 150 290 1 Balance -150 1210 -1 Post-procedural complaints: other (bruising at the site) Patient feedback: Patient satisfied with anesthetic care.
[2023-10-16] MEDS: MULTIVIT/MIN/PREN/FOL AC/IRON TABLET 1 TAB PO (08:16)
--- NOTE | 2023-10-16 09:41 | P.PNOB_ITS ---
OB - PN: Subj Subjective Date/time seen: 10/16/23 09:41 Interval history: No headaches scotomata or RUQ pain. Patient comments: pain well controlled, tolerating diet and other (Decreasing lochia.) baby status: doing well and nursing well [place] feeding status: exclusively breast feeding OB - PN: Obj Data Labs 10/16/23 04:16 10/15/23 08:56 Labs: Laboratory Results - last 24 hr 10/16/23 04:16 Hgb 11.7 L Hct 34.8 L OB - PN A/P Assessment and Plan (1) Vaginal delivery: Code(s): O80 - Encounter for full-term uncomplicated delivery Status: Acute Assessment and Plan: She is doing well. Isolated elevated blood pressure, not severe. Continue to monitor. She request discharge to home, if blood pressures remain within normal then will allow discharge later today. Discussed discharge and PIH precautions. Plan day: 1 Plan: routine care Comments: Patient doing well. Time Spent With Patient Time: Total time spent is greater than 50% in coordination of care (as documented) at patient's floor/unit and/or counseling patient: Exam Psych: Affect: normal affect Other: Abd: fundus firm below umbilicus, nontender Perineum: healing Ext: nontender
[2023-10-16 12:11] VITALS: BP 135/71; PULSE 78; RESP 16; TEMP 36.6; O2SAT 98
--- NOTE | 2023-10-16 16:02 | PC.NURSE ---
0826 Mother is demonstrating her ability to independently latch without pain to the left breast using an experienced hold of cradle [place]. Suggested moving infant closer to her body with alignment of chin buried into the breast for possibly more swallowing. Mother breastfed her first child for 12 months and that was 6 months ago. She denies any nipple discomfort and is responsively . is currently meeting outcomes for weight, output, jaundice, blood sugar and feeding frequencies of 8-12 times in 24 hours. Mother declines any additional assistance or education at this time. Mother is encouraged to call for assistance if her infant doesn?t latch, pain with latching, questions or concerns. Mother voiced understanding of information shared along with the mom/baby guide for an additional resource. Reported to the Primary RN.
[2023-10-19 08:21] VITALS: BP 136/77; PULSE 74; RESP 18; TEMP 36.6; O2SAT 100
--- NOTE | 2023-10-21 10:01 | PM.OBDSVD ---
DS: Admitting Diagnosis Discharge Date 10/16/23 Admitting Diagnosis Chronic hypertension in DS: Discharge Diagnosis Discharge Diagnosis (1) Vaginal delivery: Code(s): O80 - Encounter for full-term uncomplicated delivery Status: Acute (2) Chronic hypertension affecting : Code(s): O10.919 - Unspecified pre-existing hypertension complicating , unspecified trimester Status: Acute OB - DS: Summary Hospital Course Hospital Course: She was admitted for medical induction of labor due to chronic hypertension. She had an uncomplicated vaginal delivery. Blood pressures were 130-140/80s . She did not have any symptoms of preeclampsia in any severe symptoms. She requested discharge home on day 1. Baby did well . Lochia was minimal she was ambulating well. OB Procedures : NST and Ultrasound OB Procedures Intrapartum: Spontaneous Vag Delivery OB Procedures: : None Peripartum Data Delivery Method: Natural Vaginal complications: none Status at Discharge Functional status at discharge: independent ambulation Time Spent with Patient Time attestation: Total time spent providing and/or coordinating discharge services: Exam Const: General: cooperative Orientation/consciousness: oriented to person, oriented to place and oriented to time HENMT: Face/Nose/Sinus: Normal external nose present Eyes: General: appearance normal, both eyes and all related structures Resp: Effort & Inspection: normal respiratory effort GI: Inspection: normal to inspection Skin: General skin exam: normal color Neuro: General: oriented to person, oriented to place and oriented to time Extrem: General: normal to inspection and no calf tenderness Psych: Appearance: grossly normal Mental Status: mental status grossly normal DS: Data Data Completed and Pending Completed studies during hospitalization: Pending at discharge 10/15/23 16:09 Surgical [PTH] Routine Discharge Plan Discharge Attending physician on discharge: Janak Nixon Consulting providers: Nella Pizarro Sherri M. Discharging Clinician: Janak Nixon Patient Disposition: Home, Self-Care Activity: may shower and pelvic rest Diet: low sodium Discharge Instructions: Education: Mom and Baby Guide Given to: Mother Follow-Up: Call your delivering provider's office for an appointment to be seen in: 2 Weeks Mom and baby should come to the [facility] for the follow-up appointment. Appointment Date/Time: October 19, 2023 at 8:00 am What to expect at your follow-up visit: Physical Assessment Call [phone] if you are unable to keep your appointment time. BREAST CARE: * Wear a snug supportive bra. * For engorgement discomfort: Breast Feeding: * Apply warm moist washcloths * Express milk as needed to relieve engorgement * Wear loose clothing * For sore nipples: * Identify correct latch-on * Apply warm moist washcloths before and after nursing * Air dry nipples after nursing * May apply [place] cream to nipples PERINEAL CARE: * Until bleeding stops, use your jessica bottle after urinating * Change your pad frequently throughout the day * You may take sitz baths several times a day (fill your bathtub with warm water and soak for 20 minutes.) Do NOT bathe in the water * No tub baths until seen by your physician - You may shower ACTIVITY: * Rest as much as possible. * Do not exercise or lift anything heavier than your baby (such as laundry or other children.) * Avoid stairs or driving as much as possible. * Do not put anything into the vagina. No douching, tampons, or sexual activity until seen by physician. NOTIFY PHYSICIAN IF YOU HAVE ANY QUESTIONS OR IF ANY OF THE FOLLOWING SYMPTOMS OCCUR: * If your perineum becomes red, swollen, or more painful
== END 2023-10-16 16:57 | disposition home or self-care (01) | DRG 807 ==
LOC: ANHLDR 17:34 → ANHOB2 10-15 17:53
PROVIDERS: Admitting Provider Obstetrics & Gynecology; PCP Registered Nurse; Visit Provider Obstetrics & Gynecology
DX: O10.92 Unspecified pre-existing hypertension complicating childbirth (principal); Z37.0 Single live birth; Z3A.38 38 weeks gestation of pregnancy
CPT/HCPCS: 36415; 80053; 84550; 85014; 85018; 85025; 86592; 86850; 86900; 86901; 88307; A9270; J2590; J2795; J7120